=== PATIENT | female | born 2000 | race Caucasian/White ===

== ENCOUNTER 2021-09-10 15:59 | Outpatient (CLI) | payer BC ==
[2021-09-10 16:40] LABS: Bilirubin Neg (Negative); Blood, Urine Negative (Negative); Clarity Clear (Clear); Glucose, Urine (Dipstick) Normal (Negative); Ketone, Urine Negative (Negative); Leukocyte 25 (Negative); Nitrite Negative (Negative); Protein, Urine (Dipstick) Negative (Neg-Trace); Specific Gravity, Urine 1.015 (1.002-1.036); Urobilinogen Normal mg/dL (Less than 2); pH, Urine 6.5 (5.0-9.0)
[2021-09-10 16:45] LABS: Bacteria/HPF Rare-Few HPF (None Seen); RBC/HPF 0-3 HPF (0-3)
[2021-09-10 17:00] LABS: BHCG - Serum Negative (NEGATIVE); Pregs Control Background? CLEAR/WHITE (CLR/WHITE); Pregs Control Bar Appear? YES (CONTROL BAR)
[2021-09-11 00:05] LABS: SARS-CoV-2 PCR by NAA Not Detected (NotDetected)
== END 2021-09-10 16:00 | disposition home or self-care (01) ==
LOC: LABBT 15:59
PROVIDERS: ATTEND Urology
DX: Z01.812 Encounter for preprocedural laboratory examination (principal); Z20.822 Contact with and (suspected) exposure to COVID-19
CPT/HCPCS: 81001; 84703; 87086; U0003; U0005

== ENCOUNTER 2021-09-13 11:08 | Day surgery (SDC) | payer BC ==
[2021-09-10 11:41] VITALS: BMI 28.3
[2021-09-13] MEDS ORDERED: Iothalamate Meglumine 60% 50 ML VIAL FS ONE (13:17)
[2021-09-13] MEDS ORDERED: Levofloxacin 500 mg/D5W 100 ml Premix Bag ONE (13:29)
[2021-09-13] MEDS ORDERED: Fentanyl 250 MCG/5 ML VIAL ONE ×2 (13:30→15:06)
[2021-09-13] MEDS ORDERED: Midazolam HCl 2 mg/2 ml Vial ONE ×2 (13:30→13:32)
[2021-09-13] MEDS ORDERED: Scopolamine 1.5 mg/72 hour Patch ONE (13:32)
[2021-09-13] MEDS ORDERED: Dexamethasone 20 MG/5 ML VIAL ONE (13:41)
[2021-09-13] MEDS ORDERED: Lidocaine 1% PF 5 ML VIAL ONE (13:41)
[2021-09-13] MEDS ORDERED: Ondansetron PF 4 MG/2 ML Vial ONE (13:41)
[2021-09-13] MEDS ORDERED: PROPOFOL 200 MG/20 ML VIAL ONE (13:41)
[2021-09-13] MEDS ORDERED: Ketorolac Tromethamine 30 MG/ML VIAL ONE (15:18)
[2021-09-13] MEDS ORDERED: Oxybutynin 5 MG TAB ONE (15:18)
[2021-09-13] MEDS ORDERED: Phenazopyridine HCl 100 MG TAB ONE (15:19)
== END 2021-09-13 16:18 | disposition home or self-care (01) ==
LOC: SDC 11:08
PROVIDERS: ATTEND Urology
PROC: 0TC48ZZ Extirpation of Matter from Left Kidney Pelvis, Via Natural or Artificial Opening Endoscopic (ICD-10-PCS; principal; 2021-09-13)
PROC: 0TC38ZZ Extirpation of Matter from Right Kidney Pelvis, Via Natural or Artificial Opening Endoscopic (ICD-10-PCS; principal; 2021-09-13)
PROC: 0T788DZ Dilation of Bilateral Ureters with Intraluminal Device, Via Natural or Artificial Opening Endoscopic (ICD-10-PCS; principal; 2021-09-13)
DX: N13.2 Hydronephrosis with renal and ureteral calculous obstruction (principal); N13.4 Hydroureter; N25.89 Other disorders resulting from impaired renal tubular function; Z79.899 Other long term (current) drug therapy; Z88.2 Allergy status to sulfonamides; Z91.040 Latex allergy status
CPT/HCPCS: 74420; 82365; 88300; C2617; J1100; J1885; J1956; J2250; J2405; J2704; J3010; Q9961-U8